=== PATIENT | male | born 1940 | race African-American/Black ===

== ENCOUNTER 2017-05-10 19:46 | Inpatient (IN) | payer MEDICAID ==
[~2017-05-10] VITALS: Ht 172.7 cm; Wt 93.9 kg
[~2017-05-10 19:46] MED LIST: ACYC200C PO
[2017-05-10] MEDS ORDERED: LORAZEPAM 2MG/ML CPJ IM ONE (21:45)
[2017-05-10 22:39] LABS: BASOPHILS % 2.1 % (0.0-2.0); HEMATOCRIT. 34.7 % (42.0-52.0); HEMOGLOBIN. 11.4 g/dL (14.0-18.0); LYMPHOCYTES % 23.4 % (20.0-50.0); MEAN CORPUSCULAR HEMOGLOBIN 22.8 pg (28.0-32.0); MEAN CORPUSCULAR VOLUME 69.1 fL (80.0-94.0); MEAN PLATELET VOLUME 7.3 fl (7.4-10.4); MONOCYTES % 7.4 % (2.0-8.0); NEUTROPHILS % 67.1 % (40.0-76.0); PLATELET 278 x1000/uL (130-400); RED BLOOD CELL COUNT 5.02 mill/uL (4.7-6.1); RED CELL DISTRIBUTION WIDTH 16.8 % (11.6-14.6)
[2017-05-10 22:42] LABS: CHLORIDE 101 mEq/L (98-107)
[2017-05-10] MEDS ORDERED: SODIUM CHLORIDE 0.9% 1,000 ML IV ONE (22:42)
[2017-05-10 22:45] LABS: CARBON DIOXIDE 28 mEq/L (21-32)
[2017-05-10] MEDS ORDERED: POTASSIUM CHLORIDE 20MEQ TABLET SR PO ONE (22:45)
[2017-05-10] MEDS ORDERED: KCL 20MEQ/100ML PREMIX 100 ML IV ONE (22:45)
[2017-05-10 22:48] LABS: PARTIAL THROMBOPLASTIN TIME 25.3 sec (23.4-31.0); PROTHROMBIN TIME 10.7 sec (9.4-11.6)
[2017-05-10 22:53] LABS: PLATELET ESTIMATE NORMAL
[2017-05-11] MEDS ORDERED: LORAZEPAM 2MG/ML CPJ IV ONE ×3 (00:45)
[2017-05-11] MEDS ORDERED: CEFTRIAXONE 1 G PREMIX 50 ML IV ONE (01:45)
[2017-05-11 04:00] VITALS: BP 160/82
[2017-05-11] MEDS ORDERED: ACETAMINOPHEN 325MG TABLET PO PRN (06:00)
[2017-05-11] MEDS ORDERED: DEXTROSE 50% WATER 50ML SYRINGE IV PRN (06:15)
[2017-05-11] MEDS ORDERED: LORAZEPAM 0.5MG TABLET PO PRN (06:15)
[2017-05-11] MEDS: BLOOD SUGAR DIAGNOSTIC STRIP TEST SCH ×4 (06:41→22:04)
[2017-05-11] MEDS ORDERED: ONDANSETRON HCL 4MG/2ML VIAL IV PRN (08:00)
[2017-05-11] MEDS ORDERED: GUAIFENESIN 200MG/10ML SUGAR FREE UDC PO PRN (08:00)
[2017-05-11] MEDS ORDERED: MAGNESIUM/ALUMINUM HYDROXIDE/SIMETHICONE 30ML UDC PO PRN (08:00)
[2017-05-11] MEDS ORDERED: CLONIDINE 0.1MG TABLET PO PRN (08:00)
[2017-05-11] MEDS ORDERED: ACETAMINOPHEN 650MG SUPP PR PRN (08:00)
[2017-05-11] MEDS ORDERED: IPRATROPIUM/ALBUTEROL 0.5-3(2.5)MG/3ML NEB INH PRN (08:00)
[2017-05-11] MEDS ORDERED: DIPHENHYDRAMINE 50MG/ML VIAL IV PRN (08:00)
[2017-05-11] MEDS ORDERED: NA PHOS,M-B/NA PHOS,DI-BA ENEMA 118ML PR PRN (08:00)
[2017-05-11] MEDS ORDERED: DOCUSATE SODIUM 100MG CAPSULE PO PRN (08:00)
[2017-05-11] MEDS ORDERED: ACETAMINOPHEN 650MG/20.3ML UDC GT PRN (08:00)
[2017-05-11] MEDS: INSULIN LISPRO 100 UNITS/ML SUBCUT SCH ×4 (08:10→21:00)
[2017-05-11 08:17] VITALS: BP 162/67
[2017-05-11 08:17] LABS: HEMATOCRIT 33.5 % (42.0-52.0); MEAN CORPUSCULAR HEMOGLOBIN 22.7 pg (28.0-32.0); MEAN CORPUSCULAR VOLUME 69.4 fL (80.0-94.0); PLATELET 274 x1000/uL (130-400); RED BLOOD CELL COUNT 4.84 mill/uL (4.7-6.1); RED CELL DISTRIBUTION WIDTH 16.5 % (11.6-14.6)
[2017-05-11 08:28] LABS: CARBON DIOXIDE 28 mEq/L (21-32); CHLORIDE 103 mEq/L (98-107)
[2017-05-11 12:50] VITALS: BP 142/77
[2017-05-11] MEDS: SODIUM CHLORIDE 0.9% INJ 3ML FLUSH IVF SCH ×2 (14:25→22:04)
[2017-05-11 17:19] VITALS: BP 153/82
[2017-05-11] MEDS ORDERED: POTASSIUM CHLORIDE 20MEQ TABLET SR PO NR (18:00)
[2017-05-11 20:16] VITALS: BP 160/77
[2017-05-12] VITALS (7 sets, daily range): BP systolic 126–156; BP diastolic 54–76
[2017-05-12 04:02] LABS: CLARITY URINE TURBID (CLEAR); COLOR URINE RED (YELLOW); GLUCOSE URINE NEGATIVE (NEGATIVE); KETONES URINE NEGATIVE (NEGATIVE); LEUKOCYTE ESTERASE URINE 3+ (NEGATIVE); NITRITE URINE POSITIVE (NEGATIVE); OCCULT BLOOD URINE 2+ (NEGATIVE); PH URINE 6.5 (4.5-8.0); PROTEIN URINE 2+ (NEGATIVE); SPECIFIC GRAVITY URINE 1.014 (1.005-1.030); UROBILINOGEN URINE 0.2 E.U./dL (0.2-1.0)
[2017-05-12] MEDS: SODIUM CHLORIDE 0.9% INJ 3ML FLUSH IVF SCH ×3 (07:28→21:24)
[2017-05-12] MEDS: BLOOD SUGAR DIAGNOSTIC STRIP TEST SCH ×4 (07:29→21:22)
[2017-05-12] MEDS: INSULIN LISPRO 100 UNITS/ML SUBCUT SCH ×4 (08:04→21:00)
[2017-05-12] MEDS: LORAZEPAM 2MG/ML CPJ IV PRN (10:05)
[2017-05-12] MEDS: ACETAMINOPHEN 325MG TABLET PO PRN (16:09)
[2017-05-12 19:34] LABS: HEMATOCRIT. 33.2 % (42.0-52.0); HEMOGLOBIN. 10.7 g/dL (14.0-18.0); MEAN CORPUSCULAR HEMOGLOBIN 22.4 pg (28.0-32.0); MEAN CORPUSCULAR VOLUME 69.6 fL (80.0-94.0); MEAN PLATELET VOLUME 7.6 fl (7.4-10.4); PLATELET 262 x1000/uL (130-400); RED BLOOD CELL COUNT 4.77 mill/uL (4.7-6.1); RED CELL DISTRIBUTION WIDTH 16.5 % (11.6-14.6)
[2017-05-12 20:00] LABS: CARBON DIOXIDE 27 mEq/L (21-32); CHLORIDE 107 mEq/L (98-107)
[2017-05-12 20:10] LABS: ATYPICAL LYMPHOCYTES 1; PLATELET ESTIMATE NORMAL
[2017-05-12] MEDS: TAMSULOSIN HCL 0.4MG SR CAPSULE PO SCH (21:22)
[2017-05-13] VITALS: BP 158/72
[2017-05-13] MEDS: LORAZEPAM 2MG/ML CPJ IV PRN ×2 (02:11→10:44)
[2017-05-13 04:00] VITALS: BP 125/67
[2017-05-13] MEDS: SODIUM CHLORIDE 0.9% INJ 3ML FLUSH IVF SCH ×3 (06:35→21:46)
[2017-05-13] MEDS: BLOOD SUGAR DIAGNOSTIC STRIP TEST SCH ×4 (07:40→21:46)
[2017-05-13 08:00] VITALS: BP 139/61
[2017-05-13] MEDS: INSULIN LISPRO 100 UNITS/ML SUBCUT SCH ×4 (08:10→21:43)
[2017-05-13 12:00] VITALS: BP 130/53
[2017-05-13] MEDS ORDERED: RISP1TAB26 PO (12:37)
[2017-05-13] MEDS ORDERED: BENA20TA3 PO (12:42)
[2017-05-13] MEDS ORDERED: TERA5CAP4 PO (12:42)
[2017-05-13] MEDS ORDERED: NIFE30TA94 PO (12:42)
[2017-05-13] MEDS ORDERED: TRAZ-129 PO (12:42)
[2017-05-13] MEDS ORDERED: METF500T4 PO (12:44)
[2017-05-13] MEDS ORDERED: HYDR25TA PO (12:44)
[2017-05-13] MEDS ORDERED: PIOG15TA6 PO (12:44)
[2017-05-13 16:00] VITALS: BP 125/47
[2017-05-13 20:00] VITALS: BP 117/53
[2017-05-13] MEDS: CEFTRIAXONE 1 G PREMIX 50 ML IV SCH (21:38)
[2017-05-13] MEDS: TAMSULOSIN HCL 0.4MG SR CAPSULE PO SCH (21:45)
[2017-05-13] MEDS: TRAZODONE HCL 50MG TABLET PO SCH (21:45)
[2017-05-14] VITALS: BP 111/51
[2017-05-14 04:00] VITALS: BP 118/53
[2017-05-14] MEDS: SODIUM CHLORIDE 0.9% INJ 3ML FLUSH IVF SCH ×3 (06:03→20:46)
[2017-05-14] MEDS: BLOOD SUGAR DIAGNOSTIC STRIP TEST SCH ×4 (07:40→20:56)
[2017-05-14 08:10] VITALS: BP 125/50
[2017-05-14] MEDS: INSULIN LISPRO 100 UNITS/ML SUBCUT SCH ×4 (08:10→20:56)
[2017-05-14] MEDS: METFORMIN HCL 500MG TABLET PO SCH ×2 (08:41→18:29)
[2017-05-14] MEDS: NIFEDIPINE XL 90MG TAB PO SCH (08:41)
[2017-05-14] MEDS: RISPERIDONE 1MG TABLET PO SCH ×3 (08:42→13:33)
[2017-05-14] MEDS: HYDROCHLOROTHIAZIDE 25MG TABLET PO SCH (08:42)
[2017-05-14] MEDS: TERAZOSIN HCL 5MG CAPSULE PO SCH (08:42)
[2017-05-14] MEDS: BENAZEPRIL 20MG TABLET PO SCH (08:42)
[2017-05-14] MEDS: PIOGLITAZONE 15MG TABLET PO SCH (08:42)
[2017-05-14 12:00] VITALS: BP 123/42
[2017-05-14 16:00] VITALS: BP 100/40
[2017-05-14 18:08] LABS: BASOPHILS % 0.5 % (0.0-2.0); EOSINOPHILS % 0.7 % (0.0-5.0); HEMATOCRIT. 26.7 % (42.0-52.0); HEMOGLOBIN. 8.7 g/dL (14.0-18.0); LYMPHOCYTES % 23.2 % (20.0-50.0); MEAN CORPUSCULAR HEMOGLOBIN 22.6 pg (28.0-32.0); MEAN CORPUSCULAR VOLUME 69.7 fL (80.0-94.0); MEAN PLATELET VOLUME 7.3 fl (7.4-10.4); MONOCYTES % 6.8 % (2.0-8.0); NEUTROPHILS % 68.8 % (40.0-76.0); PLATELET 246 x1000/uL (130-400); RED BLOOD CELL COUNT 3.84 mill/uL (4.7-6.1); RED CELL DISTRIBUTION WIDTH 16.5 % (11.6-14.6)
[2017-05-14 18:20] LABS: CARBON DIOXIDE 29 mEq/L (21-32); CHLORIDE 103 mEq/L (98-107)
[2017-05-14 18:45] LABS: PLATELET ESTIMATE NORMAL
[2017-05-14] MEDS: AMPICILLIN 500 MG in SODIUM CHLORIDE 0.9% 50 ML IV SCH ×2 (19:34→23:52)
[2017-05-14 20:00] VITALS: BP 106/41
[2017-05-14] MEDS: TAMSULOSIN HCL 0.4MG SR CAPSULE PO SCH (20:45)
[2017-05-14] MEDS: TRAZODONE HCL 50MG TABLET PO SCH (20:45)
[2017-05-14] MEDS: CEFTRIAXONE 1 G PREMIX 50 ML IV SCH (20:45)
[2017-05-15] VITALS: BP 124/41
[2017-05-15 04:00] VITALS: BP 147/49
[2017-05-15] MEDS: SODIUM CHLORIDE 0.9% INJ 3ML FLUSH IVF SCH ×2 (05:56→17:10)
[2017-05-15] MEDS: AMPICILLIN 500 MG in SODIUM CHLORIDE 0.9% 50 ML IV SCH ×3 (05:56→17:13)
[2017-05-15] MEDS: BLOOD SUGAR DIAGNOSTIC STRIP TEST SCH ×3 (05:59→17:13)
[2017-05-15 08:00] VITALS: BP 113/56
[2017-05-15] MEDS: INSULIN LISPRO 100 UNITS/ML SUBCUT SCH ×3 (08:10→17:29)
[2017-05-15] MEDS: TERAZOSIN HCL 5MG CAPSULE PO SCH (08:19)
[2017-05-15] MEDS: METFORMIN HCL 500MG TABLET PO SCH ×2 (08:20→17:39)
[2017-05-15] MEDS: PIOGLITAZONE 15MG TABLET PO SCH (08:20)
[2017-05-15] MEDS: RISPERIDONE 1MG TABLET PO SCH ×3 (08:20→17:13)
[2017-05-15] MEDS: ACETAMINOPHEN 325MG TABLET PO PRN (08:20)
[2017-05-15] MEDS: NIFEDIPINE XL 90MG TAB PO SCH (09:00)
[2017-05-15] MEDS: BENAZEPRIL 20MG TABLET PO SCH (09:00)
[2017-05-15] MEDS: HYDROCHLOROTHIAZIDE 25MG TABLET PO SCH (09:00)
[2017-05-15] MEDS ORDERED: TAMS-11 PO (09:50)
[2017-05-15] MEDS ORDERED: AMPI250V3 PO (09:53)
[2017-05-15 11:43] LABS: HEMATOCRIT. 28.1 % (42.0-52.0); HEMOGLOBIN. 9.2 g/dL (14.0-18.0); MEAN CORPUSCULAR HEMOGLOBIN 22.6 pg (28.0-32.0); MEAN CORPUSCULAR VOLUME 69.3 fL (80.0-94.0); MEAN PLATELET VOLUME 7.4 fl (7.4-10.4); PLATELET 275 x1000/uL (130-400); RED BLOOD CELL COUNT 4.06 mill/uL (4.7-6.1); RED CELL DISTRIBUTION WIDTH 16.3 % (11.6-14.6)
[2017-05-15 12:00] VITALS: BP 117/48
[2017-05-15 12:12] LABS: CARBON DIOXIDE 28 mEq/L (21-32); CHLORIDE 103 mEq/L (98-107)
[2017-05-15 14:36] VITALS: BP 20/117
[2017-05-15 16:00] VITALS: BP 111/50
[2017-05-15 18:12] LABS: PLATELET ESTIMATE NORMAL
== END 2017-05-15 19:30 | disposition home or self-care (01) | DRG 720 ==
LOC: ER 19:46 → 7WST 05-11 01:34 → ENRESERV 05-11 02:12 → 7WST 05-11 06:32
PROVIDERS: ADMIT Family Medicine; ATTEND Family Medicine
PROC: 0T9B70Z Drainage of Bladder with Drainage Device, Via Natural or Artificial Opening (ICD-10-PCS; principal; 2017-05-11)
DX: A41.9 Sepsis, unspecified organism (principal); E44.0 Moderate protein-calorie malnutrition; F03.90 Unspecified dementia, unspecified severity, without behavioral disturbance, psychotic disturbance, mood disturbance, and anxiety; E11.21 Type 2 diabetes mellitus with diabetic nephropathy; E11.40 Type 2 diabetes mellitus with diabetic neuropathy, unspecified; N40.1 Benign prostatic hyperplasia with lower urinary tract symptoms; N39.0 Urinary tract infection, site not specified; N13.30 Unspecified hydronephrosis; F20.9 Schizophrenia, unspecified; R31.0 Gross hematuria; I10 Essential (primary) hypertension; N13.8 Other obstructive and reflux uropathy; E87.6 Hypokalemia; N39.498 Other specified urinary incontinence; R33.8 Other retention of urine; K80.20 Calculus of gallbladder without cholecystitis without obstruction; B95.5 Unspecified streptococcus as the cause of diseases classified elsewhere; F79 Unspecified intellectual disabilities; D63.8 Anemia in other chronic diseases classified elsewhere; E11.319 Type 2 diabetes mellitus with unspecified diabetic retinopathy without macular edema; Z78.1 Physical restraint status; Z85.46 Personal history of malignant neoplasm of prostate; Z79.899 Other long term (current) drug therapy; Z87.442 Personal history of urinary calculi
CPT/HCPCS: 36415; 71010; 74176; 76770; 80048; 80053; 81001; 82040; 82962; 83690; 84443; 85025; 85027; 85610; 85730; 86850; 86900; 87086; 93005; 96361; 96365; 96366; 96367; 96372; 96375; 96376; 99285; A6261; C1893; J0290; J0696; J1200; J1815; J2060; J3480; J7030; J7050; A4315